=== PATIENT | female | born 1975 | race African-American/Black ===

== ENCOUNTER 2018-10-21 09:09 | Emergency (ER) | payer OTHER ==
[~2018-10-21] VITALS: Ht 162.6 cm; Wt 77.0 kg
[2018-10-21] MEDS ORDERED: SODIUM CHLORIDE 0.9% 1,000 ML IV ONE ×2 (09:47→11:45)
[2018-10-21] MEDS ORDERED: LORAZEPAM 2MG/ML CPJ IV ONE (10:00)
[2018-10-21 11:11] LABS: BASOPHILS % 0.7 % (0.0-2.0); EOSINOPHILS % 0.8 % (0.0-5.0); HEMATOCRIT. 40.6 % (36.0-48.0); LYMPHOCYTES % 24.1 % (20.0-50.0); MEAN CORPUSCULAR HEMOGLOBIN 29.3 pg (28.0-32.0); MEAN CORPUSCULAR VOLUME 85.2 fL (81.0-99.0); MEAN PLATELET VOLUME 8.7 fl (7.4-10.4); MONOCYTES % 8.7 % (2.0-8.0); NEUTROPHILS % 65.7 % (40.0-76.0); PLATELET 205 x1000/uL (130-400); RED BLOOD CELL COUNT 4.77 mill/uL (4.2-5.4); RED CELL DISTRIBUTION WIDTH 16.3 % (11.6-14.6)
[2018-10-21 11:14] LABS: CHLORIDE 107 mEq/L (98-107)
[2018-10-21 11:19] LABS: ETHANOL BLOOD < 10 mg/dL
[2018-10-21 11:41] LABS: CLARITY URINE CLEAR (CLEAR); COLOR URINE YELLOW (YELLOW); KETONES URINE 1+ (NEGATIVE); LEUKOCYTE ESTERASE URINE TRACE (NEGATIVE); NITRITE URINE NEGATIVE (NEGATIVE); OCCULT BLOOD URINE NEGATIVE (NEGATIVE); PROTEIN URINE NEGATIVE (NEGATIVE); SPECIFIC GRAVITY URINE 1.013 (1.005-1.030)
[2018-10-21] MEDS ORDERED: LORAZEPAM 1MG TABLET PO ONE (11:45)
[2018-10-21 11:56] LABS: *AMPHETAMINES SCREEN URINE NEGATIVE (NEGATIVE); *BARBITURATES SCREEN URINE NEGATIVE (NEGATIVE); *BENZODIAZEPINES SCREEN URINE NEGATIVE (NEGATIVE); *COCAINE SCREEN URINE NEGATIVE (NEGATIVE)
[2018-10-21 11:57] LABS: METHADONE URINE SCREEN NEGATIVE (NEGATIVE); OPIATES URINE SCREEN NEGATIVE (NEGATIVE); PHENCYCLIDINE URINE SCREEN NEGATIVE (NEGATIVE)
[2018-10-21 12:04] LABS: CANNABINOID URINE SCREEN PRESUMTIVE POSITIVE (NEGATIVE)
[2018-10-21 13:30] VITALS: BP 136/59
== END 2018-10-21 13:45 | disposition home or self-care (01) ==
LOC: ER 09:09
DX: R00.2 Palpitations (principal); E87.6 Hypokalemia; N30.00 Acute cystitis without hematuria; R20.2 Paresthesia of skin; I10 Essential (primary) hypertension; F12.90 Cannabis use, unspecified, uncomplicated
CPT/HCPCS: 36415; 80053; 80305; 80320; 81003; 81025; 85025; 93005; 96361; 96374; 99284; J2060; J7030; G0480